=== PATIENT | female | born 1985 | race African-American/Black ===

== ENCOUNTER 2020-05-29 18:29 | Emergency (ER) | payer MEDICAID, OTHER ==
[~2020-05-29] VITALS: Ht 157.5 cm; Wt 50.0 kg
[2020-05-29] MEDS ORDERED: IV NORMAL SALINE 1000ML BAG 1,000 ML IV SCH (19:01)
[2020-05-29] MEDS ORDERED: IOHEXOL 300 MG/ML 100ML VIAL. IV ONE (19:15)
[2020-05-29] MEDS ORDERED: ONDANSETRON PF 4 MG/2 ML VIAL. IVP ONE (19:15)
[2020-05-29] MEDS ORDERED: KETOROLAC 30 MG/ML VIAL. IVP ONE (19:15)
--- NOTE | 2020-05-29 19:15 | PHYS DOC ---
Past Medical History Past Medical History: Asthma, GERD Additional Past Medical Histor: SUBSTANCE ABUSE Past Surgical History: Tubal ligation Smoking Status: Current Every Day Smoker Alcohol Use: Heavy Drug Use: Cocaine General Adult EDM: Chief Complaint: EARACHE/EAR PAIN HPI: HPI: Patient is a 34 year old female who presents with 4 days of right ear pain, body aches, nausea, vomiting, fever. Patient states she has not been rounding by also sick. Patient has right otitis externa as the ear canal is swollen and reddened and tender with examination. There is purulent exudate in the canal as well. The tympanic is foggy. Patient states she has not taken any Tylenol for quite some time. She is rating her pain a 6 out of 10 and states it is hard to hear out of the right ear. She has a history of asthma, substance abuse, GERD. Review of Systems: Review of Systems: Constitutional: fever or chills. [] Eyes: Denies change in visual acuity. [] HENT: Denies nasal congestion or sore throat. Right ear pain [] Respiratory: Denies cough or shortness of breath. [] Cardiovascular: Denies chest pain or edema. [] GI: abdominal pain, nausea, vomiting, denies bloody stools or diarrhea. [] : Denies dysuria. [] Musculoskeletal: Denies back pain or joint pain. [] Integument: Denies rash. [] Neurologic: Denies headache, focal weakness or sensory changes. [] Endocrine: Denies polyuria or polydipsia. [] Lymphatic: Denies swollen glands. [] Psychiatric: Denies depression or anxiety. [] Heart Score: Risk Factors: Risk Factors: DM, Current or recent (<one month) smoker, HTN, HLP, family history of CAD, obesity. Risk Scores: Score 0 - 3: 2.5% MACE over next 6 weeks - Discharge Home Score 4 - 6: 20.3% MACE over next 6 weeks - Admit for Clinical Observation Score 7 - 10: 72.7% MACE over next 6 weeks - Early Invasive Strategies Current Medications: Current Medications Medications (Trade) Dose Ordered Sig/Zuleyma Start Time Stop Time Status Last Admin Dose Admin Ketorolac Tromethamine (Toradol 30mg Vial) 30 mg 1X ONCE 05/29/20 19:15 05/29/20 19:16 Ondansetron HCl (Zofran) 4 mg 1X ONCE 05/29/20 19:15 05/29/20 19:16 Sodium Chloride 1,000 ml @ 1,000 mls/hr Q1H 05/29/20 19:01 05/29/20 20:00 Allergies: Allergies: Allergies Coded Allergies Type Severity Reaction Last Updated Verified Sulfa (Sulfonamide Antibiotics) Allergy Unknown rash 03/20/14 Yes diphenhydramine Adverse Reaction Intermediate Palpitations 05/29/20 Yes erythromycin base Adverse Reaction Intermediate GI upset 05/29/20 No Physical Exam: PE: Constitutional: Well developed, well nourished, no acute distress, non-toxic appearance. [] HENT: Normocephalic, atraumatic, bilateral external ears normal, oropharynx moist, no oral exudates, nose normal. Right otitis externa, redness and purulent drainage. [] Eyes: PERRLA, EOMI, conjunctiva normal, no discharge. [] Neck: Normal range of motion, no tenderness, supple, no stridor. [] Cardiovascular:Heart rate regular rhythm, no murmur [] Lungs & Thorax: Bilateral breath sounds clear to auscultation [] Abdomen: Bowel sounds normal, soft, no tenderness, no masses, no pulsatile masses. [] Skin: Warm, dry, no erythema, no rash. [] Back: No tenderness, no CVA tenderness. [] Extremities: No tenderness, no cyanosis, no clubbing, ROM intact, no edema. [] Neurologic: Alert and oriented X 3, normal motor function, normal sensory function, no focal deficits noted. [] Psychologic: Affect normal, judgement normal, mood normal. [] Current Patient Data: Vital Signs: Vital Signs Date Time Temp Pulse Resp B/P (MAP) Pulse Ox O2 Delivery O2 Flow Rate FiO2 05/29/20 18:43 98.5 82 18 142/89 (106) 99 Room Air 98.5 EKG: EK and read by Dr. Zaidi as sinus rhythm and no STEMI. [] Radiology/Procedures: Radiology/Procedures: [] Impression: [facility] [address] [place] [address] IMAGING REPORT Signed PATIENT: MINNIE CHATMAN SACCOUNT: [id number] : 1985 LOCATION: ER AGE: 34 SEX: F EXAM STATUS: REG ER ORD. PHYSICIAN: JESSICA SOL APRN REASON: fever PROCEDURE: PORTABLE CHEST 1V Exam: Chest one view INDICATION: Fever TECHNIQUE: Frontal view of the chest Comparisons: None FINDINGS: The cardiomediastinal silhouette and pulmonary vessels are within normal limits. The lung and pleural spaces are clear. IMPRESSION: No acute cardiopulmonary process. Electronically signed by: Gene Bolivar MD (05/29/2020 7:48 PM) [id number] DICTATED and SIGNED BY: GENE BOLIVAR MD DATE: 05/29/201947 [facility] [address] [place], [place] [id number] IMAGING REPORT Signed PATIENT: MINNIE CHATMANOUNT: [id number] : 1985 LOCATION: ER AGE: 34 SEX: F EXAM STATUS: REG ER ORD. PHYSICIAN: JESSICA SOL APRN REASON: nausea, vomiting, OMNI 300, 75 ML IV PROCEDURE: CT ABD PELV W/ IV CONTRST ONLY Exam: CT of abdomen and pelvis with contrast INDICATION: Nausea and vomiting TECHNIQUE: Sequential axial images through the abdomen and pelvis obtained following the administration of 75 mL of Omni 300 IV contrast. Sagittal and coronal reformatted images were reconstructed from the axial data and reviewed. Comparisons: None FINDINGS: Heart size is normal. No pericardial effusion. Visualized lung bases are clear. No pleural effusion. Liver, spleen, pancreas, gallbladder and adrenals are unremarkable. Kidneys demonstrate symmetric enhancement. No perinephric inflammation or hydronephrosis. No renal or ureteral calculi are identified. Bladder is decompressed not well evaluated. Uterus is not enlarged. No abnormal adnexal mass. Diffuse wall thickening predominantly at the ascending and transverse colon. Appendix is normal. Remainder large cyst small bowel are unremarkable no free intra-abdominal air or fluid. No obstruction. Abdominal aorta has a normal course and caliber. Abdominal vasculature is patent. Abdominal vasculature is patent. No enlarged abdominal lymph nodes are identified. No suspicious osseous lesions or acute fractures. IMPRESSION: 1. Wall thickening involving the ascending and transverse colon favored represent colitis, may be infectious or inflammatory in etiology. 2. Normal appendix. Exposure: One or more of the following in the visualized dose reduction techniques were utilized for this examination: 1. Automated exposure control 2. Adjustment of the MA and/or KV according to patient size 3. Use of iterative of reconstructive technique Electronically signed by: Gene Bolivar MD (05/29/2020 9:25 PM) [id number] DICTATED and SIGNED BY: GENE BOLIVAR MD DATE: 05/29/202124 Course & Med Decision Making: Course & Med Decision Making Pertinent Labs and Imaging studies reviewed. (See chart for details) COVID-19 CRITERIA: The patient was evaluated during the global COVID-19 pandemic, and that diagnosis was suspected/considered upon their initial presentation. Their evaluation, treatment and testing was consistent with current guidelines for patients who present with complaints or symptoms that may be related to COVID-19. See HPI. Alert and oriented x4. Ambulatory with a steady gait. Speaks in full clear sentences. Abdomen is soft and nontender. Vital signs are within normal limits. Lungs are clear to auscultation all lobes. Patient denies chest pain, shortness of breath, cough, dizziness, headache, focal weakness, numbness or tingling, vision changes. She is in the ED for CO patient has not vomited since she is Patient has not vomited since she has been in the emergency room. She is kept down p.o. medications I have given her. Patient is intoxicated with alcohol and also has cocaine and marijuana in her system. CT shows colitis. I am holding off on giving her the Flagyl tonight as she has alcohol in her system and this may make her vomit more. She will be told to begin taking the Flagyl and Cipro together tomorrow. She will be sent home on Flagyl and Cipro. I will order her eardrops for her otitis externa. I have discussed this patient and the care plan with Dr Zaidi. Mariah Disclaimer: Mariah Disclaimer: This electronic medical record was generated, in whole or in part, using a voice recognition dictation system. COVID-19 Patient Risks: Age 65 or older: No Sign of co-morbidity: No Exp to person + for COVID: No Exp to PUI: No Travel from affected area: No Lower respiratory symptoms: No Fever: Yes (STATED FEVER) Other: Yes (NAUSEA, VOMITING, BODYACHES) PPE Use: Full PPE with N95 mask or PAPR: Yes Departure Departure Impression: Primary Impression: Otitis externa Qualified Codes: H60.501 - Unspecified acute noninfective otitis externa, right ear Additional Impression: Colitis Disposition: 01 HOME, SELF-CARE Condition: STABLE Referrals: DIONNE CASTILLO [facility] (PCP) Patient Instructions: Colitis, Otitis Externa Additional Instructions: Follow-up with your primary care or GI doctor. Take medication as prescribed and with food. Do not drink alcohol with this medication as it will make you very sick and vomit. Scripts Ciprofloxacin Hcl/Dexameth (CIPRODEX OTIC SUSPENSION) 7.5 Ml Drops.susp 4 DROP RIGHT EAR BID for 10 Days, #7.5 ML Prov: JESSICA SOL APRN 05/29/20 Ondansetron (ONDANSETRON ODT) 4 Mg Tab.rapdis 1 TAB PO PRN Q6-8HRS, #16 TAB Prov: JESSICA SOL APRN 05/29/20 Ciprofloxacin Hcl (CIPRO) 500 Mg Tablet 1 TAB PO BID for 7 Days, #14 TAB 0 Refills Prov: JESSICA SOL APRN 05/29/20 Metronidazole (FLAGYL) 500 Mg Tablet 1 TAB PO BID, #14 TAB Prov: JESSICA SOL APRN 05/29/20 Justicifation of Admission Dx: Justifications for Admission: Justification of Admission Dx: N/A JESSICA SOL APRN May 29, 2020 19:15
[2020-05-29] MEDS ORDERED: CONTRAST GIVEN. MC PRN (19:30)
[2020-05-29 19:40] LABS: BASO # 0.1 x10^3/uL (0.0-0.2); BASO % 1 % (0-3); EOS # 0.1 x10^3/uL (0.0-0.7); EOS % 2 % (0-3); HEMATOCRIT 37.3 % (36.0-47.0); HEMOGLOBIN 12.7 g/dL (12.0-15.5); LYMPH % 32 % (24-48); MEAN CORPUSCULAR HEMOGLOBIN 31 pg (25-35); MEAN CORPUSCULAR HGB CONC 34 g/dL (31-37); MEAN CORPUSCULAR VOLUME 92 fL (79-100); MONO % 17 % (0-9); NEUT % 48 % (31-73); PLATELET COUNT 355 x10^3/uL (140-400); RED BLOOD COUNT 4.06 x10^6/uL (3.50-5.40); RED CELL DISTRIBUTION WIDTH 14.8 % (11.5-14.5); WHITE BLOOD COUNT 6.3 x10^3/uL (4.0-11.0)
[2020-05-29 19:50] LABS: PROTHROMBIN TIME PATIENT 11.8 SEC (11.7-14.0)
--- NOTE | 2020-05-29 19:50 | RAD ---
Exam: Chest one view INDICATION: Fever TECHNIQUE: Frontal view of the chest Comparisons: None FINDINGS: The cardiomediastinal silhouette and pulmonary vessels are within normal limits. The lung and pleural spaces are clear. IMPRESSION: No acute cardiopulmonary process. Electronically signed by: Gene Ny MD (05/29/2020 7:48 PM) [id number]
[2020-05-29 20:20] LABS: BILIRUBIN,URINE SMALL (NEG); CLARITY,URINE CLOUDY; COLOR,URINE YELLOW; NITRITE,URINE NEGATIVE (NEG); PROTEIN,URINE 100 mg/dL (NEG-TRACE)
[2020-05-29 20:25] LABS: SQUAMOUS EPITHELIAL CELL,UR MANY /LPF
[2020-05-29 20:26] LABS: BACTERIA,URINE FEW /HPF (0-FEW)
[2020-05-29 20:27] LABS: BARBITURATES NEG (NEG); BENZODIAZEPINES NEG (NEG); CANNABINOIDS POS (NEG); COCAINE POS (NEG); METHADONE NEG (NEG); OPIATES NEG (NEG); PHENCYCLIDINE NEG (NEG); RBC,URINE 0 /HPF (0-2)
[2020-05-29 20:28] LABS: AMPHETAMINE/METHAMPHETAMINE NEG (NEG)
[2020-05-29] MEDS ORDERED: ACETAMINOPHEN 500 MG TABLET PO ONE (20:30)
[2020-05-29 20:42] LABS: CALCIUM 7.5 mg/dL (8.5-10.1); GFR 77.3
[2020-05-29 20:49] LABS: ALBUMIN 3.6 g/dL (3.4-5.0); ALBUMIN/GLOBULIN RATIO 0.9 (1.0-1.7); TOTAL BILIRUBIN 0.2 mg/dL (0.2-1.0); TOTAL PROTEIN 7.5 g/dL (6.4-8.2)
[2020-05-29] MEDS ORDERED: POTASSIUM CHLORIDE 20 MEQ TABLET.ER. PO ONE (21:00)
[2020-05-29] MEDS ORDERED: ONDANSETRON ODT 4 MG TAB.RAPDIS. PO ONE (21:00)
--- NOTE | 2020-05-29 21:28 | RAD ---
Exam: CT of abdomen and pelvis with contrast INDICATION: Nausea and vomiting TECHNIQUE: Sequential axial images through the abdomen and pelvis obtained following the administration of 75 mL of Omni 300 IV contrast. Sagittal and coronal reformatted images were reconstructed from the axial data and reviewed. Comparisons: None FINDINGS: Heart size is normal. No pericardial effusion. Visualized lung bases are clear. No pleural effusion. Liver, spleen, pancreas, gallbladder and adrenals are unremarkable. Kidneys demonstrate symmetric enhancement. No perinephric inflammation or hydronephrosis. No renal or ureteral calculi are identified. Bladder is decompressed not well evaluated. Uterus is not enlarged. No abnormal adnexal mass. Diffuse wall thickening predominantly at the ascending and transverse colon. Appendix is normal. Remainder large cyst small bowel are unremarkable no free intra-abdominal air or fluid. No obstruction. Abdominal aorta has a normal course and caliber. Abdominal vasculature is patent. Abdominal vasculature is patent. No enlarged abdominal lymph nodes are identified. No suspicious osseous lesions or acute fractures. IMPRESSION: 1. Wall thickening involving the ascending and transverse colon favored represent colitis, may be infectious or inflammatory in etiology. 2. Normal appendix. Exposure: One or more of the following in the visualized dose reduction techniques were utilized for this examination: 1. Automated exposure control 2. Adjustment of the MA and/or KV according to patient size 3. Use of iterative of reconstructive technique Electronically signed by: Gene Ny MD (05/29/2020 9:25 PM) [id number]
[2020-05-29] MEDS ORDERED: CIPROFLOXACIN 400MG PREMIX 200 ML IV ONE (21:45)
[2020-05-29] MEDS ORDERED: METR500T PO (21:58)
[2020-05-29] MEDS ORDERED: CIPR500T94 PO (21:58)
[2020-05-29] MEDS ORDERED: ONDA4TAB12 PO (21:58)
[2020-05-29] MEDS ORDERED: CIPR7.5D RIGHT EAR (22:01)
[2020-05-29 22:14] VITALS: BP 126/84
== END 2020-05-29 22:26 | disposition home or self-care (01) ==
LOC: ER 18:29
DX: H60.8X1 Other otitis externa, right ear (principal); Z20.828 Contact with and (suspected) exposure to other viral communicable diseases; K52.9 Noninfective gastroenteritis and colitis, unspecified; R11.2 Nausea with vomiting, unspecified; R50.9 Fever, unspecified; J45.909 Unspecified asthma, uncomplicated; K21.9 Gastro-esophageal reflux disease without esophagitis; F17.200 Nicotine dependence, unspecified, uncomplicated; F10.10 Alcohol abuse, uncomplicated; F14.90 Cocaine use, unspecified, uncomplicated; Z98.51 Tubal ligation status; Z88.1 Allergy status to other antibiotic agents; Z88.2 Allergy status to sulfonamides; Z88.8 Allergy status to other drugs, medicaments and biological substances
CPT/HCPCS: 36415; 71045; 74177; 80053; 80307; 81001; 81025; 83690; 84484; 85025; 85610; 96361; 96374; 96375; 99285; G0480; J1885; J2405; J7030; Q9967; U0003

== ENCOUNTER 2020-08-29 23:34 | Emergency (ER) | payer SELFPAY ==
[~2020-08-29] VITALS: Ht 157.5 cm; Wt 50.0 kg
[~2020-08-29 23:34] MED LIST: CIPR500T94 PO; CIPR7.5D RIGHT EAR; METR500T PO; ONDA4TAB12 PO
--- NOTE | 2020-08-30 00:06 | PHYS DOC ---
Past Medical History Past Medical History: Asthma, GERD Additional Past Medical Histor: SUBSTANCE ABUSE Past Surgical History: Tubal ligation Smoking Status: Current Every Day Smoker Alcohol Use: Heavy Drug Use: Cocaine General Adult EDM: Chief Complaint: MECHANICAL FALL HPI: HPI: Patient is a 35 year old female who presents with mechanical fall. She was chasing her dog and fell on the concrete. Patient reports not remembering if she hit her head, but denies loss of consciousness. She reports pain in her nose and left hand. Pain in her nose is reported as 6/10 with no radiation. She reports not being on blood thinners. She reports drinking alcohol and using cocaine tonight. She is unsure of her last tetanus. Review of Systems: Review of Systems: Constitutional: Denies fever or chills Eyes: Denies redness or eye pain HENT: Denies nasal congestion or sore throat Respiratory: Denies cough or shortness of breath Cardiovascular: Denies chest pain or palpitations GI: Denies abdominal pain, nausea, or vomiting Musculoskeletal: Denies back pain or joint pain Integument: Denies rash, reports skin lesions Neurologic: Reports headache, denies focal weakness or sensory changes Complete systems were reviewed and found to be within normal limits, except as documented in this note. Allergies: Allergies: Allergies Coded Allergies Type Severity Reaction Last Updated Verified Sulfa (Sulfonamide Antibiotics) Allergy Unknown rash 03/20/14 Yes diphenhydramine Adverse Reaction Intermediate Palpitations 05/29/20 Yes erythromycin base Adverse Reaction Intermediate GI upset 05/29/20 No Physical Exam: PE: Constitutional: Well developed, well nourished, no acute distress, intoxicated HENT: Normocephalic, atraumatic, negative marrufo sign Nose: Abrasion on bridge of nose, superficial abrasion just below left nostril Eyes: PERRL, EOMI, conjunctiva normal, no discharge Neck: Normal range of motion, no tenderness, supple Lungs & Thorax: No respiratory distress, equal chest rise and fall Abdomen: Soft, no tenderness Skin: Warm, dry, no erythema, no rash, multiple 1-2mm scrapes across dorsum of left hand Back: No tenderness, no CVA tenderness Extremities: No tenderness, ROM intact, sensation intact, strength equal bilaterally, no edema Neurologic: Alert and oriented X 3, normal motor function, normal sensory function, no focal deficits noted Psychologic: Affect normal, judgment impaired Radiology/Procedures: Radiology/Procedures: PROCEDURE: CT HEAD AND CERVICAL SPINE WO CT HEAD AND CERVICAL SPINE WO History: Reason: pain s/p blunt trauma from fall / Spl. Instructions: / History: Comparison: None. Technique: Noncontrast CT imaging was performed of the head and cervical spine. Coronal and sagittal reconstructions were performed. Exposure: One or more of the following individualized dose reduction techniques were utilized for this examination: 1. Automated exposure control 2. Adjustment of the mA and/or kV according to patient size 3. Use of iterative reconstruction technique. Findings: Head CT: No intracranial hemorrhage. No mass effect. No hydrocephalus. Extra-axial spaces are unremarkable. Imaged orbits are unremarkable. Imaged paranasal sinuses and mastoid air cells are clear. No acute calvarial fracture. Cervical spine CT: Normal vertebral body height and alignment. No fracture. Soft tissues unremarkable. Impression: Head CT: 1. No acute intracranial abnormality. Cervical spine CT: 1. No acute fracture or subluxation of the cervical spine. Electronically signed by: Jax Stewart DO (08/30/2020 1:12 AM) [facility] PROCEDURE: CT MAXILLOFACIAL WO CONTRAST CT MAXILLOFACIAL WO CONTRAST History: Reason: pain s/p blunt trauma from fall / Spl. Instructions: / History: Comparison: None. Technique: Noncontrast CT imaging was performed of the maxillofacial. Coronal and sagittal reconstructions were performed. Exposure: One or more of the following individualized dose reduction techniques were utilized for this examination: 1. Automated exposure control 2. Adjustment of the mA and/or kV according to patient size 3. Use of iterative reconstruction technique. Findings: Age-indeterminate right nasal bone fracture. No adjacent paranasal soft tissue swelling. Orbits are unremarkable. Paranasal sinuses and mastoid air cells are clear. Imaged intracranial contents are unremarkable. Impression: 1. Age-indeterminate right nasal bone fracture. Recommend correlation with point tenderness. Electronically signed by: Jax Stewart DO (08/30/2020 1:40 AM) [facility] Course & Med Decision Making: Course & Med Decision Making Pertinent Labs and Imaging studies reviewed. (See chart for details) Patient is a 35 year old female presenting post mechanical fall onto concrete. She reports drinking and using cocaine tonight. She does not remember hitting her head, but the majority of lesions are present on her nose. C-collar applied in ED due to unknown mechanism of fall. Head and neck CT without acute injury. Maxillofacial CT without acute injury. C-collar removed after imaging determined there was no acute injury. Wound care provided. Patient reported abdominal pain as she was getting imaging done. Assessed at that time and it was determined that imaging was not warranted. Patient was given resources for substance abuse treatment. Patient stable for discharge with outpatient follow-up with PCP. Discussed findings and plan with patient, who acknowledges understanding and agreement. Mariah Disclaimer: Mariah Disclaimer: This electronic medical record was generated, in whole or in part, using a voice recognition dictation system. Departure Departure Impression: Primary Impression: Intoxication Additional Impressions: Substance abuse Contusion of face Qualified Codes: S00.83XA - Contusion of other part of head, initial encounter Disposition: 01 DC HOME SELF CARE/HOMELESS Condition: STABLE Referrals: NO PCP (PCP) Patient Instructions: Alcohol Intoxication, Yevh-[id number], Alcohol and Drug Addiction, Finding Treatment, Drug Abuse, FAQs, Facial or Scalp Contusion, Easy- to-Read Additional Instructions: Take [id number] ibuprofen or Tylenol for pain or discomfort. Ice areas of discomfort 20 minutes on then leave off next 20 minutes. Repeat several times daily for next few days as needed. Do not soak your wound. You may shower. Clean wound daily with soap and water. Change dressing 2 times daily. Use over the counter antibiotic ointment with each dressing change. Please call [facility] at to seek help for your mental health and/or drug/alcohol abuse. CROW ROSSI DO Aug 30, 2020 00:06
[2020-08-30] MEDS ORDERED: NEOMY/BACITR/POLYMYXIN OINT PACKET. TP ONE (00:30)
--- NOTE | 2020-08-30 01:15 | RAD ---
CT HEAD AND CERVICAL SPINE WO History: Reason: pain s/p blunt trauma from fall / Spl. Instructions: / History: Comparison: None. Technique: Noncontrast CT imaging was performed of the head and cervical spine. Coronal and sagittal reconstructions were performed. Exposure: One or more of the following individualized dose reduction techniques were utilized for this examination: 1. Automated exposure control 2. Adjustment of the mA and/or kV according to patient size 3. Use of iterative reconstruction technique. Findings: Head CT: No intracranial hemorrhage. No mass effect. No hydrocephalus. Extra-axial spaces are unremarkable. Imaged orbits are unremarkable. Imaged paranasal sinuses and mastoid air cells are clear. No acute calvarial fracture. Cervical spine CT: Normal vertebral body height and alignment. No fracture. Soft tissues unremarkable. Impression: Head CT: 1. No acute intracranial abnormality. Cervical spine CT: 1. No acute fracture or subluxation of the cervical spine. Electronically signed by: Jax Stewart DO (08/30/2020 1:12 AM) [facility]
[2020-08-30] MEDS ORDERED: KETOROLAC 30 MG/ML VIAL. IM ONE (01:30)
[2020-08-30] MEDS ORDERED: HYOSCYAMINE 0.125 MG TAB.RAPDIS PO ONE (01:30)
--- NOTE | 2020-08-30 01:43 | RAD ---
CT MAXILLOFACIAL WO CONTRAST History: Reason: pain s/p blunt trauma from fall / Spl. Instructions: / History: Comparison: None. Technique: Noncontrast CT imaging was performed of the maxillofacial. Coronal and sagittal reconstructions were performed. Exposure: One or more of the following individualized dose reduction techniques were utilized for this examination: 1. Automated exposure control 2. Adjustment of the mA and/or kV according to patient size 3. Use of iterative reconstruction technique. Findings: Age-indeterminate right nasal bone fracture. No adjacent paranasal soft tissue swelling. Orbits are unremarkable. Paranasal sinuses and mastoid air cells are clear. Imaged intracranial contents are unremarkable. Impression: 1. Age-indeterminate right nasal bone fracture. Recommend correlation with point tenderness. Electronically signed by: Jax Stewart DO (08/30/2020 1:40 AM) [facility]
[2020-08-30 02:15] VITALS: BP 120/88
== END 2020-08-30 02:22 | disposition home or self-care (01) ==
LOC: ER 23:34
DX: S00.33XA Contusion of nose, initial encounter (principal); F10.229 Alcohol dependence with intoxication, unspecified; J45.909 Unspecified asthma, uncomplicated; K21.9 Gastro-esophageal reflux disease without esophagitis; F17.200 Nicotine dependence, unspecified, uncomplicated; F14.10 Cocaine abuse, uncomplicated; Z98.51 Tubal ligation status; Z88.2 Allergy status to sulfonamides; Z88.8 Allergy status to other drugs, medicaments and biological substances; W18.39XA Other fall on same level, initial encounter; Y93.89 Activity, other specified; Y92.89 Other specified places as the place of occurrence of the external cause; Y99.8 Other external cause status
CPT/HCPCS: 70450; 70486; 72125; 96372; 99285; J1885